=== PATIENT | male | born 2000 | race American Indian/Alaskan Native ===

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

== ENCOUNTER 2021-09-06 13:02 | Emergency (ER) | payer MEDICAID, OTHER ==
[2021-09-06 14:38] VITALS: BP 117/69
--- NOTE | 2021-09-06 15:44 | Event Note ---
Date: 09/06/21 The triage nurse informed me that this patient left AGAINST MEDICAL ADVICE before I could personally evaluate him. Vital Signs - 24 hr 09/06/21 14:38 Temperature 98.4 F Pulse Rate 69 Respiratory 20 Rate Blood Pressure 117/69 [Right] O2 Sat by Pulse 100 Oximetry
== END 2021-09-07 09:29 | disposition left against medical advice (07) ==
LOC: ED 13:02
DX: R56.9 Unspecified convulsions (principal); Z53.21 Procedure and treatment not carried out due to patient leaving prior to being seen by health care provider